=== PATIENT | female | born 1950 | race Caucasian/White ===

== ENCOUNTER → 2019-04-13 11:40 | Outpatient (CLI) | payer BC, SELFPAY ==
--- NOTE | ~2019-04-13 | MM_ITS ---
EXAMINATION: MM screening archana BI w mateus HISTORY: Screening mammogram TECHNIQUE: Craniocaudal and mediolateral oblique 3-D tomosynthesis images were obtained and synthetic 2-D images were generated. CAD analysis was submitted and interpreted. COMPARISON: 04/07/2018 bilateral digital screening mammogram 03/28/2017 diagnostic left digital mammogram and limited left breast ultrasound 03/20/2017 bilateral digital screening mammogram BREAST PARENCHYMAL COMPOSITION: FINDINGS: Focal approximately 6 mm asymmetric opacity is noted in the inner aspect of the mid medial left breast at mid depth. Diagnostic left mammogram is recommended, with ultrasound if required. Otherwise there is no evidence of suspicious mass, calcification, or architectural distortion to sug gest malignancy in either breast. There has been no other suspicious interval change. IMPRESSION: 1. 6 mm focal asymmetric opacity of left breast. 2. Recommend diagnostic left mammogram and left breast ultrasound. BI-RADS Category 0: Incomplete: Needs additional imaging evaluation. Reviewed, dictated and finalized at location A. E [facility] [employer]
== END ==
PROVIDERS: PCP Internal Medicine; Visit Provider Obstetrics & Gynecology Gynecology
DX: Z12.31 Encounter for screening mammogram for malignant neoplasm of breast (principal); R92.8 Other abnormal and inconclusive findings on diagnostic imaging of breast
CPT/HCPCS: 77063; 77067

== ENCOUNTER → 2019-04-29 07:54 | Outpatient (CLI) | payer BC, SELFPAY ==
--- NOTE | ~2019-04-29 | MMUS_ITS ---
EXAMINATION: MM diagnostic mammo unilat LT, US breast LT complete HISTORY: Follow-up left breast asymmetry TECHNIQUE: Additional 3-D tomosynthesis images of the left breast were performed and synthetic 2-D im ages were generated. CAD analysis was submitted and interpreted. High resolution left breast ultrasou nd was performed. COMPARISON: Comparison to multiple prior studies sequentially, with oldest reviewed study dated 03/20. FINDINGS: MAMMOGRAPHIC FINDINGS: Breast composed of scattered areas of fibroglandular density. There is a small focal irregular asymme try in the upper inner quadrant of the left breast, middle third. There is an adjacent microlobulated 7 mm mass in the upper inner quadrant. There are no suspicious calcifications. ULTRASOUND: Left breast ultrasound: At 10-11 o'clock, 7 cm from the nipple, there is a 3 mm cyst. Adjacent to this at the same location a s an slightly lobulated hypoechoic mass measuring 6 x 3 x 3 mm without internal vascularity or map and chart mounter ior features. There is parallel orientation. This could represent a complicated cyst. There is subtle posterior acoustic enhancement. IMPRESSION: 1. Probable benign findings of the left breast. 2. Recommend 6 month follow-up diagnostic left mammogram and ultrasound BI-RADS category 3, probably benign findings. Reviewed, dictated and finalized at location A. RONMENTAL TECHNICIAN IMPRESSION: 1. Probable benign findings of the left breast. 2. Recommend 6 month follow-up diagnostic left mammogram and ultrasound BI-RADS category 3, probably benign findings.
== END ==
PROVIDERS: PCP Internal Medicine; Visit Provider Obstetrics & Gynecology
DX: R92.8 Other abnormal and inconclusive findings on diagnostic imaging of breast (principal)
CPT/HCPCS: 76641; 77065

== ENCOUNTER → 2019-10-28 08:30 | Outpatient (CLI) | payer MEDICARE, SELFPAY ==
--- NOTE | ~2019-10-28 | MMUS_ITS ---
EXAMINATION: MM diagnostic archana LT w mateus, US breast LT limited HISTORY: Six-month follow-up for probably benign left breast mass TECHNIQUE: Craniocaudal, mediolateral, and mediolateral oblique 3-D tomosynthesis images of the left breast were performed and synthetic 2-D images were generated. Spot compression views are also obtain ed CAD analysis was submitted and interpreted. High resolution limited left breast ultrasound was per formed. COMPARISON: 04/29/2019, 04/13/2019, 04/07/2018, 03/28/2017, 03/20/2017 FINDINGS: MAMMOGRAPHIC FINDINGS: There is architectural distortion with possible central mass in the middle/posterior third of the upp er inner quadrant of the breast at the 10:00 location approximately 7 cm from the nipple. A stable 6 mm mass is seen at the 9:00 to 10:00 location in the middle third of the breast 5.5 cm deep to the ni pple. ULTRASOUND: No definite sonographic correlate is identified for the mammographic finding in question. IMPRESSION: 1. Suspicious architectural distortion with possible central mass in the upper outer quadrant of the left breast without sonographic correlate. 2. Given that the findings are best demonstrated with 3-D tomosynthesis images, 3-D tomosynthesis bio psy is recommended. BI-RADS category 4, suspicious findings. Reviewed, dictated and finalized at location A. IMPRESSION: 1. Suspicious architectural distortion with possible central mass in the upper outer quadrant of the left breast without sonographic correlate. 2. Given that the findings are best demonstrated with 3-D tomosynthesis images, 3-D tomosynthesis biopsy is recommended. BI-RADS category 4, suspicious findings.
== END ==
PROVIDERS: PCP Internal Medicine; Visit Provider Obstetrics & Gynecology Gynecology
DX: R92.8 Other abnormal and inconclusive findings on diagnostic imaging of breast (principal)
CPT/HCPCS: 76642; 77061; 77065; G0279

== ENCOUNTER → 2020-07-06 11:04 | Outpatient (CLI) | payer MEDICARE, SELFPAY ==
--- NOTE | ~2020-07-06 | DEXA_ITS ---
Bone Density Report Name: Rubia Merlos Age: 70 Sex: Female Ethnicity: White Date of : 1950 Indication: monitoring treatment; postmenopausal Referring Provider: KACIE ESTRELLA Study: Bone densitometry was performed. Exam Date: July 06, 2020 Accession number: [id number] Bone Density: Region BMD T-score Z-score Classification AP Spine (L1-L4) 1.131 0.8 2.9 Normal Femoral Neck (Left) 0.894 0.4 2.2 Normal Total Hip (Left) 1.102 1.3 2.8 Normal Femoral Neck (Right) 0.914 0.6 2.4 Normal Total Hip (Right) 1.069 1.0 2.5 Normal Total Hip Mean 1.086 1.2 2.7 Normal World Health Organization criteria for BMD impression classify patients as: Normal (T-score at or above -1.0), Osteopenia (T-score between -1.0 and -2.5), or Osteoporosis (T-score at or below -2.5). 10-year Fracture Risk: FRAX not reported because: All T-scores for Spine Total, Hip Total, Femoral Neck at or above -1.0 Treated for osteoporosis Previous Exams: Region Exam Age BMD T-score BMD Change BMD Change Date g/cm2 vs Baseline vs Previous AP Spine(L1-L4) 07/06/2020 70 1.131 0.8 0.090 0.063 03/19/2016 65 1.068 0.2 0.027* 0.027* 02/02/2013 62 1.041 -0.1 Total Hip(Left) 07/06/2020 70 1.102 1.3 0.060 0.035 03/19/2016 65 1.068 1.0 0.025 0.025 02/02/2013 62 1.042 0.8 Total Hip(Right) 07/06/2020 70 1.069 1.0 0.057 0.029 03/19/2016 65 1.040 0.8 0.028* 0.028* 02/02/2013 62 1.012 0.6 *Denotes significance at 95% confidence level, LSC for AP Spine = 0.022 g/cm2, LSC for Total Hip = 0.027 g/cm2 Clinical Information Provided by Patient: Is being treated for osteoporosis Has used the following medications: Evista (i.e. raloxifene), Vitamin D, MTV Patient maximum height was 63.0 Menopause Age: 55 No regular weight bearing exercise Drinks caffeinated beverages Onset of menses at age 14 Number of children 2 Impression: The patient has normal bone mass. No significant bone loss was observed. Discussion: PATIENT UNDER TREATMENT WITH NO SIGNIFICANT BMD LOSS SINCE LAST EXAM. In an untreated patient, BMD typically declines with age. A lack of decline or gain is usually a sign that treatment is efficacious and fracture risk is reduced. It is important to ask patients whether they are taking their medications and to encoura
== END ==
PROVIDERS: PCP Internal Medicine; Visit Provider Obstetrics & Gynecology Gynecology
DX: Z78.0 Asymptomatic menopausal state (principal)
CPT/HCPCS: 77080

== ENCOUNTER → 2021-08-29 14:02 | Outpatient (CLI) | payer MEDICARE, SELFPAY ==
--- NOTE | ~2021-08-29 | XR_ITS ---
XR chest 2V DATE: 08/29/2021 14:36 INDICATION: Chronic obstructive pulmonary disease TECHNIQUE: 2 views COMPARISON: None FINDINGS: Normal heart size. No hilar or mediastinal enlargement. Mild bilateral hyperinflation. No pulmonary infiltrate or consolidation, pleural effusion or pulmonar y vascular congestion or pneumothorax is detected. There is osteopenia. IMPRESSION: Mild hyperinflation; no active cardiopulmonary disease Reviewed, dictated and finalized at location B.
== END ==
PROVIDERS: PCP Internal Medicine; Visit Provider Clinical Nurse Specialist
DX: J44.9 Chronic obstructive pulmonary disease, unspecified (principal); R91.8 Other nonspecific abnormal finding of lung field
CPT/HCPCS: 71046

== ENCOUNTER 2023-07-24 08:47 | Outpatient (CLI) | payer MEDICARE, SELFPAY ==
--- NOTE | ~2023-07-24 | DEXA_ITS ---
Bone Density Report Name: KWABENA MANN Age: 73 Sex: Female Ethnicity: White Date of : 1950 Indication: postmenopausal; screening for osteoporosis; cancer; Referring Provider: COURTNEY, GEORGE Study: Bone densitometry was performed. Exam Date: July 24, 2023 Accession number: [id number] Bone Density: Region BMD T-score Z-score Classification AP Spine (L1-L4) 1.064 0.2 2.5 Normal Femoral Neck (Left) 0.869 0.2 2.2 Normal Total Hip (Left) 1.102 1.3 3.0 Normal Femoral Neck (Right) 0.870 0.2 2.2 Normal Total Hip (Right) 1.049 0.9 2.6 Normal Total Hip Mean 1.076 1.1 2.8 Normal World Health Organization criteria for BMD impression classify patients as: Normal (T-score at or above -1.0), Osteopenia (T-score between -1.0 and -2.5), or Osteoporosis (T-score at or below -2.5). 10-year Fracture Risk: FRAX not reported because: All T-scores for Spine Total, Hip Total, Femoral Neck at or above -1.0 Previous Exams: Region Exam Age BMD T-score BMD Change BMD Change Date g/cm2 vs Baseline vs Previous AP Spine(L1-L4) 07/24/2023 73 1.064 0.2 0.023* -0.066 07/06/2020 70 1.131 0.8 0.090 0.063 03/19/2016 65 1.068 0.2 0.027* 0.027* 02/02/2013 62 1.041 -0.1 Total Hip(Left) 07/24/2023 73 1.102 1.3 0.059* -0.001 07/06/2020 70 1.102 1.3 0.060 0.035 03/19/2016 65 1.068 1.0 0.025 0.025 02/02/2013 62 1.042 0.8 Total Hip(Right) 07/24/2023 73 1.049 0.9 0.037* -0.020 07/06/2020 70 1.069 1.0 0.057 0.029 03/19/2016 65 1.040 0.8 0.028* 0.028* 02/02/2013 62 1.012 0.6 *Denotes significance at 95% confidence level, LSC for AP Spine = 0.022 g/cm2, LSC for Total Hip = 0.027 g/cm2 Clinical Information Provided by Patient: Has used the following medications: Evista (i.e. raloxifene), Vitamin D, MTV Has the following medical conditions: Cancer, HX OF LEFT BREAST CA LUMPECTOMY 2019 Patient maximum height was 63.0 Menopause Age: 55 No regular weight bearing exercise Drinks caffeinated beverages Onset of menses at age 14 Number of children 2 Impression: The patient has normal bone mass. No significant bone loss was observed. Discussion: LOW RISK OF FRACTURE; BONE DENSITY IS WELL ABOVE THE MINIMUM DESIRABLE LEVEL AND ABOVE AVER
== END 2023-07-24 08:48 ==
PROVIDERS: PCP Internal Medicine; Visit Provider Nurse Practitioner
DX: Z78.0 Asymptomatic menopausal state (principal)
CPT/HCPCS: 77080

== ENCOUNTER 2024-02-19 14:33 | Outpatient (RCR) | payer MEDICARE, SELFPAY | END 2024-05-04 09:34 | disposition home or self-care (01) | LOC: ANHDMC 14:33 | PROVIDERS: PCP Internal Medicine; Visit Provider Nurse Practitioner | DX: E11.9 Type 2 diabetes mellitus without complications (principal); Z71.89 Other specified counseling | CPT/HCPCS: G0108 ==